=== PATIENT | female | born 1980 | race Caucasian/White ===

== ENCOUNTER 2018-02-10 16:06 | Emergency (ER) | payer BC, SELFPAY ==
[~2018-02-10 16:06] MED LIST: Iopamidol 370 76% 100 ML VIAL ONE
[2018-02-10 16:56] LABS: #Basophils 0.1 thou/uL (0.0-0.2); #Eosinphils 0.2 thou/uL (0.0-0.7); #Lymphocytes 3.8 thou/uL (1.20-3.40); #Monocytes 0.6 thou/uL (0.11-0.59); #Neutrophils 7.6 thou/uL (1.40-6.50); %Basophils 1.1 % (0.0-1.0); %Eosinophils 1.4 % (0.0-10.0); %Lymphocytes 30.7 % (21.0-51.0); %Monocytes 4.5 % (0.0-10.0); %Neutrophils 62.3 % (42.0-75.0); Mean Corpuscular HGB CONC 35.3 g/dL (32.0-36.0); Mean Corpuscular Hemoglobin 30.6 pg (27.0-31.0); Mean Corpuscular Volume 86.8 fL (78.0-98.0); Mean Platelet Volume 7.3 fL (7.4-10.4); Platelet Count 224 thou/uL (130-400); RBC Distribution Width 11.4 % (11.5-14.5); Red Blood Cell (RBC) Count 4.57 mill/uL (4.20-5.40); White Blood Cell (WBC) Count 12.2 thou/uL (4.8-10.8)
[2018-02-10 17:11] LABS: ALT (SGPT) 61 U/L (8-55); AST (SGOT) 29 U/L (5-34); Albumin 4.3 g/dL (3.5-5.0); Alkaline Phosphatase 92 U/L (40-150); Anion Gap 16 mmol/L (10-20); BUN (Urea Nitrogen) 11 mg/dL (7.0-18.7); Bilirubin, Total 0.6 mg/dL (0.2-1.2); Calc. Creatinine Clearance 0 mL/min (70-130); Calcium 9.7 mg/dL (7.8-10.44); Carbon Dioxide 26 mmol/L (22-29); Chloride 103 mmol/L (98-107); Estimated GFR-MDRD Greater than 90; Globulin 2.9 g/dL (2.4-3.5); Glucose 137 mg/dL (70-105); Potassium 3.5 mmol/L (3.5-5.1); Protein, Total 7.2 g/dL (6.0-8.3); Sodium 141 mmol/L (136-145)
[2018-02-10 17:28] LABS: Bilirubin Negative (Negative); Blood, Urine Small (Negative); Clarity Cloudy (Clear); Glucose, Urine (Dipstick) Negative (Negative); Leukocyte Moderate (Negative); Nitrite Negative (Negative); Protein, Urine (Dipstick) Trace mg/dL (Neg-Trace); Urobilinogen 0.2 mg/dL (0.2-1.0)
[2018-02-10] MEDS ORDERED: Fentanyl 100 MCG/2 ML VIAL ONE (17:40)
[2018-02-10 17:44] LABS: Bacteria/HPF 1+ HPF (None Seen); Squamous Epithelial 0-3 HPF (0-3); Trichomonas/HPF 2+ HPF (None Seen)
--- NOTE | 2018-02-10 18:45 | CT ---
CT ABDOMEN AND PELVIS WITH IV CONTRAST 02/10/18 HISTORY: Abdominal pain. Pelvic bleeding. COMPARISON: 12/25/15. FINDINGS: Lung bases are clear. Liver diffusely hypodense. Tiny cyst associated with the cortex of the left kid elza. Tiny areas of hyperdensity at each renal collecting system is consistent with early contrast exc retion. No enlarged lymph nodes or free fluid. The urinary bladder is incompletely distended. Uterus is surgically absent. Vagina distended with gas and particulate debris. IMPRESSION: Debris is apparent within the vagina. Cause not evident. Hepatic steatosis. POS: [facility]
[2018-02-10] MEDS ORDERED: cefTRIAXone\\ROCEPHIN 250 MG VIAL ONE (19:09)
[2018-02-10] MEDS ORDERED: Azithromycin 250 MG TAB ONE (19:09)
[2018-02-10] MEDS ORDERED: Lidocaine 1% PF 5 ML VIAL ONE (19:09)
[2018-02-10] MEDS ORDERED: Doxycycline Hyclate 100 MG TAB ONE (19:37)
[2018-02-12 13:02] LABS: Chlamydia by PCR Not Detected (NotDetected); GC by PCR Not Detected (NotDetected)
== END 2018-02-10 19:48 | disposition home or self-care (01) ==
LOC: SCSER 16:06
DX: N73.9 Female pelvic inflammatory disease, unspecified (principal); A59.01 Trichomonal vulvovaginitis; E11.9 Type 2 diabetes mellitus without complications; F41.9 Anxiety disorder, unspecified; F32.9 Major depressive disorder, single episode, unspecified; F17.210 Nicotine dependence, cigarettes, uncomplicated
CPT/HCPCS: 74177; 80053; 81003; 81015; 85025; 87480; 87491; 87510; 87591; 87660; 96361; 96372; 96374; J0696; J2001; J3010

== ENCOUNTER 2019-02-06 14:41 | Outpatient (CLI) | payer BC, OTHER | END 2019-02-06 14:42 | disposition home or self-care (01) | LOC: DTY/OP 14:41 | PROVIDERS: ATTEND Surgery | DX: E66.01 Morbid (severe) obesity due to excess calories (principal) | CPT/HCPCS: 97802 ==